=== PATIENT | female | born 1945 | race Caucasian/White ===

== ENCOUNTER → 2017-01-10 | Outpatient (CLI) | payer BC ==
[~2017-01-10] MED LIST: LEVO100T7 PO
--- NOTE | 2017-01-10 12:46 | MAMMOGRAPHY REPORT ---
BILATERAL DIGITAL SCREENING MAMMOGRAM WITH CAD: 01/10/2017 CLINICAL HISTORY: Routine screening. TECHNIQUE: Bilateral CC and MLO views were obtained. Current study was also evaluated with a Comput er Aided Detection (CAD) system. COMPARISON: Comparison is made to exams dated: 01/05/2016 mammogram, 01/02/2015 mammogram, 01/01/2014 judy mogram, 12/26/2012 mammogram, 12/23/2011 mammogram, and 12/21/2010 mammogram - [facility] nter. BREAST COMPOSITION: There are scattered areas of fibroglandular density in both breasts. FINDINGS: There are a few stable benign rounded and rim calcifications. Mild vascular calcification s in the breasts. No new suspicious mass, architectural distortion or cluster of microcalcification s is seen. IMPRESSION: ACR BI-RADS CATEGORY 1: NEGATIVE There is no mammographic evidence of malignancy. A 1 year screening mammogram is recommended. The p atient will receive written notification of the results. Approximately 10% of breast cancers are not detected with mammography. A negative mammographic repor t should not delay biopsy if a clinically suggestive mass is present. Radha Nielsen M.D. ay/:01/10/2017 09:00:25 Rheologist: Sherice ABRAHAM(Carmen)(Ricky), [facility] letter sent: Normal 1/2 BI-RADS Code: ACR BI-RADS Category 1: Negative
== END | disposition home or self-care (01) ==
LOC: C.MAMM 07:28
PROVIDERS: ATTEND Obstetrics & Gynecology
DX: Z12.31 Encounter for screening mammogram for malignant neoplasm of breast (principal)

== ENCOUNTER → 2017-04-01 | Outpatient (CLI) | payer BC ==
[2017-04-01 14:11] LABS: THYROID STIMULATING HORMONE 0.446 uIu/ml (0.300-4.500)
== END | disposition home or self-care (01) ==
LOC: C.LABBC 09:27
PROVIDERS: ATTEND Internal Medicine
DX: E03.9 Hypothyroidism, unspecified (principal)

== ENCOUNTER → 2017-10-28 | Outpatient (CLI) | payer BC ==
[2017-10-28 09:53] LABS: HEMATOCRIT 41.5 % (37-47); HEMOGLOBIN 13.8 g/dL (12.0-16.0); MEAN CELL VOLUME 91.6 fL (80-100); MEAN CORPUSCULAR HEMOGLOBIN 30.5 pg (25-34); MEAN CORPUSCULAR HGB CONC 33.3 g/dl (32-36); MEAN PLATELET VOLUME 10.5 fL (7.4-10.4); PLATELET COUNT 274 K/uL (130-400); RED CELL DISTRIBUTION WIDTH CV 13.5 % (11.5-14.5); RED CELL DISTRIBUTION WIDTH SD 45.1 fL (36.4-46.3); WHITE BLOOD COUNT 6.04 K/uL (4.8-10.8)
[2017-10-28 10:23] LABS: ALBUMIN 3.5 gm/dl (3.4-5.0); ALT/SGPT 21 U/L (12-78); AST/SGOT 20 U/L (15-37); BLOOD UREA NITROGEN 16 mg/dl (7-18); CALCIUM 9.2 mg/dl (8.5-10.1); CARBON DIOXIDE 27 mmol/L (21-32); CHOLESTEROL 193 mg/dl (0-200); CREATININE 0.76 mg/dl (0.60-1.20); GLUCOSE 87 mg/dl (70-99); POTASSIUM 4.4 mmol/L (3.5-5.1); SODIUM 139 mmol/L (136-145)
[2017-10-28 10:37] LABS: ALKALINE PHOSPHATASE 93 U/L (45-117); LDL CHOLESTEROL CALCULATED 93 mg/dl; TOTAL PROTEIN 7.3 gm/dl (6.4-8.2)
== END | disposition home or self-care (01) ==
LOC: C.LAB1850 08:40
PROVIDERS: ATTEND Internal Medicine
DX: Z13.220 Encounter for screening for lipoid disorders (principal); E03.9 Hypothyroidism, unspecified; R10.9 Unspecified abdominal pain; M85.80 Other specified disorders of bone density and structure, unspecified site

== ENCOUNTER → 2018-01-16 | Outpatient (CLI) | payer BC ==
--- NOTE | 2018-01-17 07:45 | MAMMOGRAPHY REPORT ---
BILATERAL DIGITAL SCREENING MAMMOGRAM TOMOSYNTHESIS WITH CAD: 01/16/2018 CLINICAL HISTORY: Routine screening. TECHNIQUE: Breast tomosynthesis in addition to standard 2D mammography was performed. Current study was also evaluated with a Computer Aided Detection (CAD) system. COMPARISON: Comparison is made to exams dated: 01/10/2017 mammogram, 01/05/2016 mammogram, 01/02/2015 judy mogram, 01/01/2014 mammogram, 12/26/2012 mammogram, and 12/23/2011 mammogram - [facility]. BREAST COMPOSITION: There are scattered areas of fibroglandular density in both breasts. FINDINGS: There is a 5 mm nodular asymmetry in the lateral, middle to posterior right breast on the cc view (tomosynthesis slice 20/78, and a 5 mm nodular asymmetry in the lateral, middle one third of the left breast on the cc view (tomosynthesis slice 22/84). A third nodular asymmetry is seen in the medial, middle to posterior left breast on the CC 2D view. Although these areas could represent nor mal overlapping fiber glandular tissue, additional spot compression tomosynthesis views and possible ultrasound are recommended bilaterally. No other suspicious mass, architectural distortion or cluster of microcalcifications is seen. IMPRESSION: ACR BI-RADS CATEGORY 0: INCOMPLETE EVALUATION: NEED ADDITIONAL IMAGING EVALUATION The subcentimeter nodular asymmetries in each breast need additional imaging evaluation. The patient will be called to schedule an appointment. Approximately 10% of breast cancers are not detected with mammography. A negative mammographic report should not delay biopsy if a clinically suggestive mass is present. Radha Nielsen M.D. ay/:01/16/2018 08:05:08 Saturator Operator: Sherice ABRAHAM(R)(M), [facility] letter sent: Addl Imaging 0 BI-RADS Code: ACR BI-RADS Category 0: Incomplete Evaluation: Need Additional Imaging Evaluation
== END | disposition home or self-care (01) ==
LOC: C.MAMM 07:09
PROVIDERS: ATTEND Obstetrics & Gynecology
DX: Z12.31 Encounter for screening mammogram for malignant neoplasm of breast (principal); N64.9 Disorder of breast, unspecified

== ENCOUNTER → 2018-01-25 | Outpatient (CLI) | payer BC ==
--- NOTE | 2018-01-26 14:45 | MAMMOGRAPHY REPORT ---
BILATERAL DIGITAL DIAGNOSTIC MAMMOGRAM TOMOSYNTHESIS AND TARGETED LEFT ULTRASOUND: 01/25/2018 CLINICAL HISTORY: 72-year-old woman called back from screening mammography for bilateral nodular asym metries. TECHNIQUE: Bilateral spot compression tomosynthesis CC and MLO views were obtained. COMPARISON: Comparison is made to exams dated: 01/16/2018 mammogram, 01/10/2017 mammogram, 01/05/2016 ma mmogram, 01/02/2015 mammogram, 01/01/2014 mammogram, and 12/26/2012 mammogram - [facility]. BREAST COMPOSITION: There are scattered areas of fibroglandular density in both breasts. FINDINGS: The spot compression tomosynthesis views of the right breast demonstrate complete effacemen t of the asymmetry seen in the lateral, middle one third of the breast. There is no evidence of a pe rsistent mass or architectural distortion in that location and the glandular pattern appears similar to numerous prior mammograms suggesting the asymmetry represented normal overlapping fibroglandular t issue. The spot compression tomosynthesis views of the left breast centered in the medial posterior breast d emonstrate complete effacement of the nodular asymmetry seen on recent screening mammography. In the lateral left breast, there is a serpiginous partially calcified blood vessel and adjacent 6.2 mm mas s with lucent central notch, most likely representing an intramammary lymph node. Further evaluation with ultrasound was performed. Targeted ultrasound was performed throughout the lateral left breast. In the 1:30 axis, 4 cm from th e nipple, there is a morphologically normal benign intramammary lymph node measuring 6.9 x 5.1 mm, co rrelating with the mammographic finding. This is benign and no further workup is needed at this time . Recommend return to annual screening mammography schedule. IMPRESSION: ACR BI-RADS CATEGORY 2: BENIGN, TARGETED ULTRASOUND ACR BI-RADS CATEGORY 2: BENIGN Effacement of the asymmetries in the lateral right breast and medial left breast, which most likely r epresented normal overlapping fibroglandular tissue. A persistent nodular asymmetry in the lateral le ft breast corresponds with a benign intramammary lymph node. There is no mammographic or targeted so nographic evidence of malignancy in the breasts. Recommend return to annual screening mammography sc hedule. Approximately 10% of breast cancers are not detected with mammography. A negative mammographic report should not delay biopsy if a clinically suggestive mass is present. Radha Nielsen M.D. ay/:01/25/2018 15:22:37 Network Operations Center Technician: Marie Evans, [facility] letter sent: Normal 1/2 BI-RADS Code: ACR BI-RADS Category 2: Benign Ultrasound BI-RADS: ACR BI-RADS Category 2: Benign
== END | disposition home or self-care (01) ==
LOC: C.MAMM 13:44
PROVIDERS: ATTEND Obstetrics & Gynecology
DX: N64.89 Other specified disorders of breast (principal)

== ENCOUNTER 2023-08-05 09:40 | Observation (INO) ==
--- NOTE | 2023-07-06 08:57 | PAT Medication Instructions ---
Medication Instructions Date of Service July 06, 2023 Home Medications Medication Instructions Recorded albuterol sulfate 90 mcg/actuation 1 inh inhalation QID PRN shortness 05/05/21 aerosol inhaler of breath or wheezing #8.5 grams meclizine 25 mg tablet 25 mg PO TID PRN dizziness #30 tabs 04/22/23 zagbbasd-hqly-eynt 8 mg-folic 400 mcg-K 50 mcg-lutein 300 mcg tablet (Centrum Silver Women) 1 tab PO QAM albuterol sulfate 90 mcg/actuation aerosol inhaler 1 inh inhalation QID PRN meclizine 25 mg tablet 25 mg PO TID PRN budesonide-formoterol HFA 80 mcg-4.5 mcg/actuation aerosol inhaler (Symbicort) 1 inh inhalation DAILY levothyroxine 112 mcg capsule 112 mcg PO QAM rosuvastatin 10 mg tablet 10 mg PO QAM Continue as directed budesonide-formoterol HFA 80 mcg-4.5 mcg/actuation aerosol inhaler (Symbicort) 1 inh inhalation DAILY DO NOT take the morning of surgery ctwnexez-svvb-sjib 8 mg-folic 400 mcg-K 50 mcg-lutein 300 mcg tablet (Centrum Silver Women) 1 tab PO QAM meclizine 25 mg tablet 25 mg PO TID PRN Take morning of surgery With a small sip of water, OTHERWISE NOTHING TO EAT OR DRINK AFTER MIDNIGHT: albuterol sulfate 90 mcg/actuation aerosol inhaler 1 inh inhalation QID PRN(use if needed; please bring with you to hospital day of surgery if possible) levothyroxine 112 mcg capsule 112 mcg PO QAM rosuvastatin 10 mg tablet 10 mg PO QAM Take evening before surgery albuterol sulfate 90 mcg/actuation aerosol inhaler 1 inh inhalation QID PRN(if needed) meclizine 25 mg tablet 25 mg PO TID PRN(if needed) Other Notes If you have any questions please call us at [phone] or [phone] or [phone] or [phone]
--- NOTE | 2023-07-13 14:26 | Anesthesiology Consultation ---
Date of Service July 13, 2023 Assessment & Plan (1) Encounter for pre-operative examination: - awaiting upcoming PCP 08/02/23 appointment, will also request pre-operative notation. - occasional chest discomfort and dyspnea on exertion ongoing x several years; pt describes chest discomfort as tightness associated with sensation of difficulty breathing which resolves when she stops activity; denies change or worsening; denies symptoms in clinic today. 2/6 systolic murmur noted, only valvular abnormality being trace tricuspid regurgitation on stress echo 2021. Case discussed in detail with Dr. Busch who advised patient is acceptable to proceed with surgery as scheduled, not requiring additional evaluation or testing from his standpoint. To chart review, patient does already have a [place] PCP appointment 08/02/23, will request PCP also provides pre-operative notation. - patient reports two implants were placed 1 week ago, Merly with surgeon's office was made aware and states she will contact patient if there is any issue/concern with this and upcoming surgery. Patient also made aware surgeon's office will follow-up with her if surgeon's office has concerns. She verbalized understanding and denied questions or concerns. - pulmonology office visit 07/05/23 [place]: "...Multiple pulmonary nodules determined by computed tomography of lung: Multiple pulmonary nodules noted on CT chest measuring up to 2 mm which appear stable to the CT from 04/22/2021. No mediastinal adenopathy. No further follow-up or work-up required at this time. She quit smoking over 40 years ago. Shortness of breath on exertion: PFTs with perhaps a mild suggestion of airflow obstruction. She was trialed on Breo Ellipta and seems to have a marginal response. I indicated to her that she can continue Breo Ellipta for now, but consider discontinuing in the wintertime and see how her symptoms managed without Breo. Prior cardiopulmonary exercise test reviewed suggesting deconditioning and possible airflow obstruction. Also noted during that time she had an elevated Trae of 34 which is nonspecific, but can be seen in patients with eosinophilic airway inflammation. Physical deconditioning..." - Outpatient joint assessment: Patient is currently scheduled for inpatient pathway. If re-evaluated and patient/surgeon requests outpatient pathway, patient is not recommended candidate for outpatient joint program from anesthesia standpoint. Chart Review Chart Review: Pending: Refer to Additional Notes / Consult section and Patient seen in Pre Admission Testing Teaching & Discussion Pre-Anesthesia Teaching/Discussion Notes: Instructed NPO after midnight before surgery, except medications with 15 cc of water. Medication instructions provided according to the PAT guidelines. History Surgery Operation Date: 08/05/23 07:00 Proposed Procedures p Left Total Knee Arthroplasty - Clif Burrows MD Height/Weight Height: 5 ft 5.75 in Weight: 95.4 kg Allergies Allergy/AdvReac Type Severity Reaction Status Date / Time morphine Allergy Intermediate N/V, Verified 07/06/23 08:02 HALLUCINATIONS Medications Home Medications Medication Instructions Recorded Confirmed Last Taken oppixmun-cocr-dgsq 8 mg-folic 400 1 tab PO QAM 04/24/19 07/06/23 03/15/22 mcg-K 50 mcg-lutein 300 mcg tablet (Centrum Silver Women) albuterol sulfate 90 mcg/actuation 1 inh inhalation QID PRN shortness 05/05/21 07/06/23 Unknown aerosol inhaler of breath or wheezing #8.5 grams meclizine 25 mg tablet 25 mg PO TID PRN dizziness #30 tabs 04/22/23 07/06/23 Unknown budesonide-formoterol HFA 80 1 inh inhalation DAILY 05/31/23 07/06/23 Unknown mcg-4.5 mcg/actuation aerosol inhaler (Symbicort) levothyroxine 112 mcg capsule 112 mcg PO QAM 07/06/23 07/06/23 Unknown rosuvastatin 10 mg tablet 10 mg PO QAM 07/06/23 07/06/23 Unknown Additional Notes: Patient was instructed and it was corrected on provided medication instructions to take meclizine if needed day of surgery. She verbalized full understanding and agreement, denied questions or concerns. Past Medical History Medical History Depression no meds Diverticulosis of colon denies hx diverticulitis Elevated cholesterol GERD (gastroesophageal reflux disease) controlled, stable per pt History of asthma controlled, stable per pt; has never needed albuterol inhaler; follows with [place]ology History of kidney stones 10+ yrs ago Hx of vertigo last & first episode summer 2022 Hypothyroidism Multiple pulmonary nodules determined by computed tomography of lung being followed by pulmonology [place] Osteopenia Shortness of breath on exertion follow with [place] pulmonology Patient denies h/o stroke, seizures, heart attack, heart failure, DM, HTN, blood clots/DVTs or blood transfusions. Exercise / Class Metabolic Activity II 4-5 Yardwork/Stairs/Walk up hill (occasional chest discomfort and dyspnea on exertion ongoing x several years; states that chest discomfort feels like chest tightness due to difficulty breathing; denies change or worsening; denies symptoms in clinic today; notes improvement when stops exertion) Past Family History Family History Grandmother Diabetes Father Cardiac disorder Myocardial infarction Mother Lung disease Other No family history of adverse response to anesthesia Denies family history of Colon cancer Ovarian cancer Prostate cancer Breast cancer Past Surgical History Surgical History H/O colonoscopy History of cataract surgery rt/left History of tooth extraction Hx of LASIK Past Anesthesia History No Hx of Anesthesia Complications and No Family Hx of Anesthesia Complications History of PONV No Hx of PONV and No Hx of Motion Sickness Social History Smoking Status: Former smoker Do You Dip or Chew Tobacco: No Smoking End Date: quit at age 32 Hx Alcohol Use: Yes Alcohol type: wine alcohol intake frequency: a few times a month Hx Substance Use: No substance use type: does not use Review of Systems Snoring, denies witnessed apneas. Patient denies fever, chills, cough, wheezing, dizziness, lightheadedness, presyncope or palpitations. Physical Exam Vital Signs Vitals BP 147/79 P 84 TEMP 98.3 SP02 94% on RA RESP 18 Physical Patient resting comfortably in chair in no acute distress, alert and oriented, responding appropriately throughout visit Full cervical extension range of motion without pain TMD 3.5 finger breadths Mallampati Score 2 Dentition: two implants right upper side, denies chipped or loose teeth, caps/crowns, or bridges Lungs: normal respiratory effort. Good air movement, clear throughout to auscultation, no adventitious breath sounds Cardiac: regular rate and rhythm, 2/6 systolic murmur noted, no gallops or rubs Carotid arteries: negative bruit bilat Lab Results Anesthesia Preop Results Results Anesthesia Widget: WBC 9.05 K/ul (4.8-10.8) 07/13/23 Hgb 13.6 g/dl (12.0-16.0) 07/13/23 Hct 40.5 % (37.0-47.0) 07/13/23 Plt 315 K/uL (130-400) 07/13/23 Na 139 mmol/L (136-145) 07/13/23 K 4.2 mmol/L (3.5-5.1) 07/13/23 Cl 109 mmol/L (98-107) H 07/13/23 CO2 26 mmol/L (21-32) 07/13/23 BUN 18 mg/dl (6-23) 07/13/23 Creat 0.87 mg/dl (0.6-1.2) 07/13/23 Glucose Level 110 mg/dl (70-99(Fasting)) H 07/13/23 PT 10.3 Seconds (9.0-12.0) 07/13/23 PTT 28.9 Seconds (21.0-31.0) 07/13/23 INR 0.9 (0.9-1.1) 07/13/23 TSH 2.166 uIu/ml (0.300-4.500) 06/07/23 HA1c 5.5 % (4.5-5.6) 07/13/23 Blood Type AB Positive 07/13/23 Antibody Screen NEGATIVE 07/13/23 Testing Electrocardiogram Date: 04/22/23 NSR, rate 70 bpm Poor R wave progression, consider anterior AL vs lead placement vs LVH No significant change vs 03/15/22 EKG Chest X-Ray Date: 04/22/23 *1view* No acute cardiopulmonary findings Stress Test Date: 05/19/22 Negative exercise stress echo MPHR 98% METS 6 Trace tricuspid regurgitation Grade I diastolic dysfunction EF 60%
--- NOTE | 2023-07-30 10:24 | History & Physical Report ---
Date of Service July 30, 2023 Assessment & Plan (1) Left knee DJD: 78-year-old female with advanced bilateral knee pain and DJD left side worse than the right. She has failed conservative treatment like to have her left knee replaced. Plan: We will take her to the operating room do a left total knee replacement. The risks Mente this procedure explained the patient clued but not limited to DVT PE , infection, neurovascular injury, persistent pain, need for further surgery, etc. The patient understands and desires to proceed. Informed consent is obtained. She has been seen by Dr. Bran her medical physician and been Miko for surgery. She also has some underlying respiratory problems and saw her corporate law assistant and has been cleared for surgery. She is planning on being discharged to home using [facility]. History of Present Illness Chief Complaint: . Knee pain discomfort left side greater than the right Primary Care Provider: Bandar Bran MD . Patient is a 78-year-old female who presents now for surgical treatment of her left knee. Got a long history of bilateral knee pain discomfort describes gotten worse over time. Both knees hurt but the left knee hurts more than the right. She been to extensive conservative treatment provided over the past year which has become less successful. She describes global pain. The shots helped temporarily but not long enough. The more she walks the more it hurts the more she limps. She like to go and get her left knee replaced. Allergies Allergy/AdvReac Type Severity Reaction Status Date / Time morphine Allergy Intermediate N/V, Verified 07/21/23 08:02 HALLUCINATIONS Home Medications Medication Instructions Recorded Confirmed Type zncxbddt-uyxq-rvfi 8 mg-folic 400 1 tab PO QAM 04/24/19 07/21/23 History mcg-K 50 mcg-lutein 300 mcg tablet (Centrum Silver Women) albuterol sulfate 90 mcg/actuation 1 inh inhalation QID PRN shortness 05/05/21 07/21/23 Rx aerosol inhaler of breath or wheezing #8.5 grams meclizine 25 mg tablet 25 mg PO TID PRN dizziness #30 tabs 04/22/23 07/21/23 Rx levothyroxine 112 mcg capsule 112 mcg PO QAM 07/06/23 07/21/23 History rosuvastatin 10 mg tablet 10 mg PO QAM 07/06/23 07/21/23 History budesonide-formoterol HFA 80 1 inh inhalation DAILY PRN 07/21/23 07/21/23 History mcg-4.5 mcg/actuation aerosol inhaler (Symbicort) Past Med/Surg History Medical History Depression no meds Diverticulosis of colon denies hx diverticulitis Elevated cholesterol GERD (gastroesophageal reflux disease) controlled, stable per pt History of asthma controlled, stable per pt; has never needed albuterol inhaler; follows with [place] History of kidney stones 10+ yrs ago Hx of vertigo last & first episode summer 2022 Hypothyroidism Multiple pulmonary nodules determined by computed tomography of lung being followed [place]ology [place] Osteopenia Shortness of breath on exertion follow with [place] Surgical History H/O colonoscopy History of cataract surgery rt/left History of tooth extraction Hx of LASIK Family History Grandmother Diabetes Father Cardiac disorder Myocardial infarction Mother Lung disease Other No family history of adverse response to anesthesia Denies family history of Colon cancer Ovarian cancer Prostate cancer Breast cancer Social History Smoking Status: Former smoker Tobacco Type: Cigarettes Age Started Using Tobacco: 18; Age Quit Using Tobacco: 32; Second Hand Exposure: Yes (as a child); Do You Dip or Chew Tobacco: No; Hx Alcohol Use: Yes Alcohol type: wine Alcohol Intake Frequency: 2-4 x/Month Hx Substance Use: No Preferred Language: Yakut Communication Ability: Effective Visual Impairment: No Limitations Hearing Ability: Normal Payroll Officer Required: No Beliefs That Will Affect Care: None marital status: Current Living Situation: Alone current occupational status: retired current occupation: computer mechanic elementary math tutor Feels Safe at Home: Yes Childhood Exposure to Second-Hand Smoke: Yes Dental Care, Regularly: Yes Physical Activity Frequency: 3-4 Times per Week Seatbelt Use: always Sunscreen Use: No Assistive Devices: Contacts and Glasses Review of Systems All systems reviewed & are unremarkable except as noted in HPI & below. Physical Exam . Physical examination reveals a pleasant middle-age female. Looks to be in pretty good health. Examination of the left knee reveal patient ambulates independently but is got varus alignment to her knee. Is got bony hypertrophy medially and a little bit of tenderness medially. Range of motion is about 5 degrees short of full extension to 120 degrees of flexion. There is no instability. No pain with hip motion. Constitutional WD/WN, vitals as above Neck trachea midline, no thyromegaly Respiratory normal respiratory effort, lungs clear to auscultation Cardiovascular RRR, no murmur, no edema Gastrointestinal (Abdomen) normal bowel sounds, soft, nontender, no hepatosplenomegaly Results & Data Results & Data Laboratory Results . Diagnostic Findings . X-rays of the left knee were reviewed. She has advanced left knee tricompartment DJD. She is got complete loss of medial joint space. Got osteophytes in all 3 compartments. PG Care Time/CCT Total # of Minutes Spent Total Time Spent with Patient: Total time spent is greater than 50% in coordination of care (as documented) at patient's floor/unit and/or counseling patient: Coding Level of Care Code None Diagnoses Left knee DJD M17.12
[~2023-08-05 09:40] MED LIST changes: +ACETAMINOPHEN 500 MG TAB PO SCH; +BUPIVACAINE 0.25% PF 30 ML VIAL ONE; +BUPIVACAINE 0.5 % 5 MG/1 ML PF 10ML VIAL ONE; +BUPIVACAINE LIPOSOME/PF 266 MG, BUPIVACAINE/EPINEPHRINE 50 ML, SODIUM CHLORIDE 0.9% PF ... INFIL SCH; +CeleBREX 200 MG CAP PO SCH; +FAMOTIDINE 20 MG TAB PO SCH; -LEVO100T7 PO; +LR 500ML BOLUS, THEN 15ML/HR IV SCH; +METOCLOPRAMIDE HCL 10 MG TABLET PO SCH; +TRANEXAMIC ACID 1,000 MG **IV Intra-op IV SCH; +ceFAZolin 2000MG 2,000 MG/15 ML SYR IV SCH; +dexAMETHasone 4 MG TAB PO SCH
[2023-08-05] MEDS ORDERED: fentaNYL citrate PF 100 MCG/2 ML VIAL ONE (10:08)
[2023-08-05] MEDS ORDERED: LIDOCAINE 2% 2 ML VIAL/AMP(20MG/ML) INFIL ONE (10:08)
[2023-08-05] MEDS ORDERED: MIDAZOLAM HCL 1 MG/ML 2ML VIAL ONE (10:08)
[2023-08-05] MEDS ORDERED: PROPOFOL IV EMULSION 10 MG/ML 20 ML VIAL IV ONE ×2 (10:08→11:28)
[2023-08-05] MEDS ORDERED: ONDANSETRON INJ 2 MG/ML 2 ML VIAL ONE (10:08)
[2023-08-05] MEDS ORDERED: DEXAMETHASONE SOD INJ 4 MG/ML VIAL ONE (10:08)
[2023-08-05] MEDS: LR 60ML/HR IV SCH ×2 (10:14→10:18)
[2023-08-05] MEDS ORDERED: ePHEDrine sulfate 50 MG/ML AMP IV PRN (10:19)
[2023-08-05] MEDS ORDERED: fentaNYL citrate PF 100 MCG/2 ML VIAL IV PRN (10:19)
[2023-08-05] MEDS ORDERED: ONDANSETRON INJ 2 MG/ML 2 ML VIAL IV PRN ×2 (10:19→14:03)
[2023-08-05] MEDS ORDERED: ATROPINE SULFATE 0.1 MG/ML 10ML SYR IV PRN (10:19)
--- NOTE | 2023-08-05 10:29 | History & Physical Bridge Note ---
Date of Service August 05, 2023 History & Physical Bridge Note I have examined the patient, reviewed the History & Physical and in the interval since the performance of the History & Physical I have noted the following changes of clinical significance: no changes noted
[2023-08-05] MEDS ORDERED: BUPIVACAINE/EPINEPHRINE 0.25% 1:200,000 30 ML VIAL ONE (10:35)
[2023-08-05] MEDS ORDERED: SODIUM CHLORIDE 0.9% PF 50 ML VIAL ONE (10:36)
[2023-08-05] MEDS ORDERED: BUPIVACAINE LIPOSOME 1.3% 266 MG/20 ML VIAL ONE (10:36)
--- NOTE | 2023-08-05 12:33 | Operative Report ---
PG Post Operative Report Pre & Post Diagnosis Operation Date: 08/05/23 10:55 Pre-Op Diagnosis: Degenerative Joint Disease Knee Left Post-Op Diagnosis: Degenerative Joint Disease Knee Left I identified the patient and participated in the time-out.: Yes Procedure Operation Date: 08/05/23 10:55 Actual Procedures p Left Total Knee Arthroplasty(Left) - Clif Burrows MD Surgeon Clif Burrows MD Floor Clerk Cesar Houser PA-C Estimated Blood Loss 50 Findings Consistent with Post-Op Diagnosis Operative findings were advanced left knee tricompartment DJD. She had extensive grade 4 [id number] disease in all 3 compartments. She had chronic ACL deficiency. Osteophytes in all 3 compartments. Moderate-sized joint effusion. Specimens Left knee sent for pathology Anesthesia Type Spinal MAC Complications none Disposition Accompanied Patient To Recovery: No Indications Patient 78-year-old female said a long history of bilateral knee pain discomfort describes gotten worse over time patient been through extensive conservative treatment over the years which just became less successful. X-rays show advanced bilateral tricompartment arthritis. She elected proceed with a left total knee arthroplasty. Description of Procedure Operative implants consist of: 1 Biomet Vanguard size 67.5 left posterior stabilized femoral component. 2. Biomet size 71 tibial tray. 3. 12 mm pro stabilized polyethylene insert. 4. 31 x 8 all poly patella. The patient was taken the operating, identified, and placed on the operating table supine position but all contractors were properly padded. IV antibiotics are by the anesthesia team. A spinal anesthetic and abductor canal block had been provided in the holding area. Herrera catheter was placed in sterile fashion to the left doctor was then placed in the left lower extremities and prepped and draped in usual sterile fashion. The left leg was elevated exsanguinated with use of an Esmarch and the tourniquet was placed at 310 mmHg. An anterior approach the left knee was then performed to longitudinal incision centered over the patella. Sharp dissection carried through subcutaneous tissue down the extensor mechanism. A medial prepped arthrotomy incision was made. Some subperiosteal dissection was carried out medially. The fat pad was resected from Neath patella tendon. Lateral patellofemoral ligament was released. Patella subluxated laterally and the knee was flexed. The osteophytes taken on distal femur. The ACL was absent. The PCL was released from distal femur the tibia subluxated anteriorly. The external tibial alignment jig was then placed in the interface of the tibia and adjusted 14 mm medially. Proximal tibial cut was made remove about a millimeter or 2 of bone from most deficient aspect medial tibial plateau. Some arthritis taken off medially and posterior medially. The tibia sized to a size 71. Attention drawn the femur. The distal femur examined the sharp drop with intramedullary canal was suction. A left 5 degree valgus cutting guide was placed. This femoral cutting block was pinned in place. This femoral cut was made to take an additional 3 mm bone off distal femur. The femur was then sized to a size 67.5. The AP cutting block was pinned parallel to the epicondylar axis which was 4 degrees of external rotation. Anterior cut, anterior chamfer, posterior cut, posterior chamfer cuts were made. The box cutting guide was placed in just slight lateral and the box cut was made. The knee was flexed with the remnants of the medial and lateral menisci were excised. The osteophytes were taken off the posterior aspect of femur. A trial femoral component was placed. The tibial tray was pinned in maximum external rotation and the drill and stem punch were used to create defect in proximal tibia for the tibial tray. Knee was then trialed and the 12 mm insert fit most appropriately. Attention drawn the patella. The patella skin of all soft tissues. Patella thickness measured 23 mm in thickness was cut down to 15. Sized to a size 31 patella. The lug holes were drilled for 31 patella. The lateral osteophytes removed. Patella button was placed. Knee was taken through range of motion patella tracked nicely with no thumbs test. Attention toward placing the permanent components. Nupathe all trial components were removed. Bone plug was placed in the distal femur limit blood loss. A double batch of Palacos G cement was mixed. Biomet Vanguard size 67.5 left Po stabilized femoral component, size 71 tibial tray, a 12 mm pro stabilized polyethylene insert, and a 31 x 8 all poly patella then cemented in place. The knee was brought out into full extension till cement hardened. Final cement check was then performed. Pericapsular tissues were injected with total 100 cc of combination of 20 of Exparel, 30 cc normal saline, 50 cc of quarter percent Marcaine with epinephrine. Patient did receive 1 g tranexamic acid. The tourniquet was let down for final tourniquet time 52 minutes. Hemostasis reduced electrocautery to extensor mechanism closed with combination 1 PDS suture #1 Vicryl suture in [id number] fashion. Extensor mechanism checked found to be intact the subcutaneous tissue then closed with 2 Dexon suture in a buried interrupted fashion skin was closed skin brent. Leg was then cleaned and dried and sterile dressed with Xeroform, 4 fours, sterile cast padding, Avila bandage were applied. Patient then transferred to recovery in stable condition. Patient tolerated the procedure well and there were no complications. Cesar Houser, my physician family practice physician assistant, was present for the entire procedure. His assistance was essential and required for appropriate patient positioning, prepping and draping, surgical exposure, performing the technical details of the operation, placement the implants, closure of the wound, and placement of the sterile bandage. I attest to the content of the Intraoperative Record and any orders documented therein. Any exceptions are noted below.
--- NOTE | 2023-08-05 13:13 | XRay Report ---
XR knee LT 1 or 2V routine CLINICAL HISTORY: Postoperative evaluation. COMPARISON: Left knee radiographs April 06, 2022. FINDINGS: Alignment of the total left knee arthroplasty is anatomic. There is no periprosthetic frac ture or unexpected radiopaque foreign body. There are skin brent. IMPRESSION: Expected findings following total left knee arthroplasty. ACT 112: Negative or not required by law. Electronically signed by: Henry Jung M.D. 08/05/2023 1:12 PM
--- NOTE | 2023-08-05 13:23 | Anesthesiology Progress Note ---
Date of Service August 05, 2023 Anesthesia Post Procedure Vital Signs Vital Signs: Temp Pulse Pulse Resp BP Pulse Ox O2 Del Method 08/05/23 13:15 70 15 128/61 96 Room Air 08/05/23 13:05 74 19 129/62 95 Room Air 08/05/23 12:55 75 22 122/61 93 Room Air 08/05/23 12:45 36.3 C L 81 20 104/54 L 94 Room Air, Oxymask 08/05/23 10:20 37 C 84 20 154/74 H 96 Room Air Transfer of Care Handoff Completed per policy Notes Mental Status: alert / awake / arousable Patient Amnestic to Procedure: Yes Nausea / Vomiting: adequately controlled Pain: adequately controlled Airway Patency, RR, SpO2: stable & adequate BP & HR: stable & adequate Hydration State: stable & adequate Neuraxial Anesthesia: was administered and sensory block is resolving Anesthetic Complications: no major complications apparent and Pt Satisfied with anesthetic care
[2023-08-05] MEDS ORDERED: MECLIZINE HCL 25 MG TAB PO PRN (14:03)
[2023-08-05] MEDS ORDERED: BUDESONIDE/FORMOTEROL FUMARATE 80/4.5 60 PUFFS/INHALER INH PRN (14:03)
[2023-08-05] MEDS ORDERED: HYDROmorphone INJ 0.5 MG/0.5 ML SYR IV PRN (14:03)
[2023-08-05] MEDS ORDERED: NALOXONE HCL 0.4 MG/1 ML VIAL/CARP IV PRN (14:03)
[2023-08-05] MEDS ORDERED: ALUMINUM/MAGNESIUM SUSP 30 ML UDC PO PRN (14:03)
[2023-08-05] MEDS ORDERED: bisacodyL 10 MG SUPP PR PRN (14:03)
[2023-08-05] MEDS ORDERED: METOCLOPRAMIDE HCL INJ 5 MG/ML 2 ML VIAL IV PRN (14:03)
[2023-08-05] MEDS ORDERED: oxyCODONE HCL IR 5 MG TAB (IMMEDIATE RELEASE) PO PRN (14:03)
[2023-08-05] MEDS ORDERED: MAGNESIUM HYDROXIDE SUSP 30 ML UDC PO PRN (14:03)
[2023-08-05] MEDS ORDERED: ALBUTEROL HFA 8 GM INHALER INH PRN (14:03)
[2023-08-05] MEDS: KETOROLAC TROMETHAMINE 15 MG/ML VIAL IV SCH ×2 (16:19→20:32)
[2023-08-05] MEDS: SODIUM CHLORIDE 0.9% 1,000 ML IV SCH (16:19)
[2023-08-05] MEDS: ASCORBIC ACID 500 MG TAB PO SCH (16:19)
[2023-08-05] MEDS: ceFAZolin 2000MG 2,000 MG/15 ML SYR IV SCH (18:21)
[2023-08-05] MEDS ORDERED: TRANEXAMIC ACID / 0.7% NACL 1,000 MG/100 ML BAG IV SCH (18:30)
[2023-08-05] MEDS: SENNA 8.6 MG TAB PO SCH (20:27)
[2023-08-05] MEDS: ACETAMINOPHEN 500 MG TAB PO SCH (20:29)
[2023-08-05] MEDS: DOCUSATE SODIUM 100 MG CAP PO SCH (20:29)
[2023-08-05] MEDS: ASPIRIN 81 MG ECTAB PO SCH (20:29)
[2023-08-05] MEDS ORDERED: SENNA 8.6 MG TAB PO SCH (21:00)
[2023-08-06] MEDS: KETOROLAC TROMETHAMINE 15 MG/ML VIAL IV SCH ×2 (03:47→07:56)
[2023-08-06] MEDS: ceFAZolin 2000MG 2,000 MG/15 ML SYR IV SCH (03:47)
[2023-08-06] MEDS: SODIUM CHLORIDE 0.9% 1,000 ML IV SCH (05:27)
[2023-08-06] MEDS ORDERED: LEVOTHYROXINE SODIUM 112 MCG TABLET PO SCH (06:30)
[2023-08-06 07:30] LABS: Hematocrit (blood only) 34.8 % (37.0-47.0); Hemoglobin 11.9 g/dl (12.0-16.0); Mean Corpuscular Hemoglobin 30.8 pg (25.0-34.0); Mean Corpuscular Hgb Conc 34.2 g/dL (32.0-36.0); Mean Corpuscular Volume 90.2 fL (80.0-100.0); Mean Platelet Volume 10.7 fL (9.4-12.4); Platelet Count 271 K/uL (130-400); RDW Coefficient of Variation 12.5 % (11.5-14.5); RDW Standard Deviation 41.1 fL (36.4-46.3); Red Blood Count 3.86 M/uL (4.20-5.40)
[2023-08-06] MEDS: ASCORBIC ACID 500 MG TAB PO SCH (07:54)
[2023-08-06] MEDS: DOCUSATE SODIUM 100 MG CAP PO SCH (07:55)
[2023-08-06] MEDS: SENNA 8.6 MG TAB PO SCH (07:56)
[2023-08-06] MEDS: ASPIRIN 81 MG ECTAB PO SCH (07:57)
[2023-08-06] MEDS: ACETAMINOPHEN 500 MG TAB PO SCH ×2 (07:57→14:09)
[2023-08-06] MEDS ORDERED: dexAMETHasone 10 MG in SYRINGE 0 ML IV SCH (08:00)
[2023-08-06 08:02] LABS: BUN Creatinine Ratio 21.3 (10-20); Est GFR (African American) 71.9 ml/min; Est GFR (Non-African American) 62.1 ml/min; Potassium 4.2 mmol/L (3.5-5.1)
--- NOTE | 2023-08-06 08:36 | Surgery Progress Note ---
Date of Service August 06, 2023 Assessment & Plan (1) Status post left knee replacement: Plan: 78-year-old female postop day 1 from left knee replacement doing pretty well. Pain is controlled. She is neurologically intact. Plan: 1. DVT prophylaxis including thigh-high teds, SCDs, aspirin twice a day. 2. PT OT. Weight-bear as tolerated left total knee protocol. 3. Pain control doing okay with current pain regimen. 4. Disposition plan to discharge home with some home health if she does okay in therapy today Admission and Anticipated Discharge Date Admission Date: August 05, 2023 Subjective 78-year-old female postop day 1 from a left knee replacement. She is doing pretty well had a reasonable night. Pain is controlled. No chest pain or shortness of breath. Not feeling dizzy or lightheaded. Physical Exam Physical Exam: Physical exam shows a pleasant middle-age female. She is lying in bed looks comfortable. Examination left leg reveals the leg to be well aligned. Dressing is clean dry and intact. She can dorsiflex and plantarflex her foot appropriately. She can do a good straight leg raise. Respiratory: normal respiratory effort, lungs clear to auscultation Cardiovascular: RRR, no murmur, no edema Gastrointestinal (Abdomen): normal bowel sounds, soft, nontender, no hepatosplenomegaly Results & Data Vital Signs (Past 12 Hours) Vital Signs Temp Pulse Resp BP BP Pulse Ox O2 Del Method 08/06/23 07:47 36.7 C 69 18 143/73 H 96 Room Air 08/06/23 04:00 36.6 C 66 18 138/75 97 Room Air 08/05/23 22:10 35.8 C L 64 16 165/91 H 98 Room Air 08/05/23 20:45 36.9 C 70 18 171/85 H 99 Room Air Laboratory Results Hemoglobin is 11.9. Hematocrit is 34.8. Electrolytes are stable. PG Care Time/CCT Total # of Minutes Spent Total Time Spent with Patient: Total time spent is greater than 50% in coordination of care (as documented) at patient's floor/unit and/or counseling patient: Coding Level of Care Code None Diagnoses Status post left knee replacement Z96.652
[2023-08-06] MEDS ORDERED: ROSUVASTATIN CALCIUM 10 MG TAB PO SCH (09:00)
[2023-08-06] MEDS ORDERED: NON-FORMULARY MEDICATION (Multivit-Min-Iron-Fa-Vit K-Lut [Centrum Silver Women] 8 mg iron- PO SCH (09:00)
[2023-08-06] MEDS ORDERED: MULTIVITAMIN TAB PO SCH (09:00)
--- NOTE | 2023-08-11 08:16 | Discharge Summary ---
Date of Service August 11, 2023 Discharge Data Procedures Performed Operation Date: 08/05/23 10:55 Actual Procedures p Left Total Knee Arthroplasty(Left) - Clif Burrows MD Hospital Course (1) Status post left knee replacement: This is a 78 year old patient admitted on 08/05/23 and underwent total knee arthroplasty. She tolerated the procedure well and there were no complications. Transferred to the PACU post op and later to the orthopedic floor for further care. She was given ancef for antibiotic prophylaxis. She was also given SOTERO stockings, SCDs, and aspirin for DVT prophylaxis. Hemoglobin, hematocrit, and vital signs were monitored during her hospital stay and remained stable. Did not require any blood transfusions. There were no complications during her hospital stay. By post op day #1 the patient was tolerating a regular diet, pain was reasonably controlled with oral pain medicine, and she was participating in physical therapy. On post op day #1 the patient was discharged home and set up with home health care. She was given printed discharge instructions including prescriptions for extra strength tylenol, aspirin, ketorolac, zofran, senokot, and oxycodone. Continue physical therapy, weight bearing as tolerated. Continue SOTERO stockings. Follow up approximately 2 weeks post op or sooner if there are problems or concerns. Coding Level of Care Code None Diagnoses Status post left knee replacement Z96.652
== END 2023-08-06 14:43 | disposition home health service (06) ==
LOC: 3W 09:40 → ASU 09:40
DX: Z87.891 Personal history of nicotine dependence; Z88.5 Allergy status to narcotic agent; Z79.890 Hormone replacement therapy; M17.12 Unilateral primary osteoarthritis, left knee; Z79.899 Other long term (current) drug therapy